=== PATIENT | female | born 1975 | race Caucasian/White ===

== ENCOUNTER 2018-01-15 07:51 | Day surgery (SDC) | payer MEDICARE, MEDICAID ==
[2018-01-15] MEDS ORDERED: Lactated Ringers 1,000 ML IV SCH (08:15)
[2018-01-15] MEDS ORDERED: Midazolam 1 MG/ML 2 ML SDV ONE (08:34)
[2018-01-15] MEDS ORDERED: fentaNYL 100 MCG/2 ML SDV ONE (08:34)
[2018-01-15] MEDS ORDERED: Propofol 200 MG/20 ML SDV ONE (08:34)
[2018-01-15 10:22] VITALS: BP 145/88
--- NOTE | 2018-01-16 08:29 | OR ---
DATE OF PROCEDURE: 01/15/2018 PREOPERATIVE DIAGNOSIS: Blood in the stool. POSTOPERATIVE DIAGNOSES: 1. Two small colon polyps, proximal right colon, 15 cm from anal verge. 2. Blood in stool. PROCEDURE PERFORMED: Colonoscopy to the cecum with biopsy resection of 2 small colon polyps, proximal right colon and 15 cm from anal verge. ANESTHESIA: IV anesthesia with monitored anesthesia care. INDICATION: This 42-year-old white female is referred for a colonoscopy because of blood in her stool. She says her last colonoscopic exam was done about 3 years ago at [facility], where they found some polyps. I counseled her for a colonoscopy with possible biopsy and/or polypectomy, including risks and alternatives, and she gave her informed consent to proceed. DESCRIPTION OF PROCEDURE: The patient was placed in the left lateral decubitus position. IV anesthesia was administered by Anesthesia Service. Time-out was held. A rectal exam was performed, which was unremarkable. The flexible video Olympus colonoscope was introduced through her anus, up her rectum, and out her colon, all the way to the cecum. En route, in the proximal right colon, we saw a small polyp, which was removed with the biopsy forceps. Once the cecum was reached, the scope was slowly withdrawn, examining the mucosa throughout. No additional mucosal abnormalities were noted until we reached 15 cm from the anal verge. Here, another small polyp was seen, which was removed with the biopsy forceps. The scope was retroflexed in the rectum, with the distal rectum showing some hemorrhoidal tissue. Otherwise, unremarkable. The scope was straightened and removed. She tolerated the procedure well. Bhavesh Catalan MD /[id number]
== END 2018-01-15 10:42 | disposition home or self-care (01) ==
LOC: JP.SDS 07:51
PROVIDERS: ATTEND Surgery
DX: D12.6 Benign neoplasm of colon, unspecified (principal); K63.5 Polyp of colon; Z88.8 Allergy status to other drugs, medicaments and biological substances
CPT/HCPCS: 45380; 88305; J2250; J2704; J3010; J7120